=== PATIENT | female | born 1950 ===

== ENCOUNTER 2019-03-23 13:12 | Outpatient (CLI) | payer OTHER | END 2019-03-23 13:15 | disposition home or self-care (01) | LOC: EKG 13:12 | DX: I10 Essential (primary) hypertension (principal) ==

== ENCOUNTER 2020-06-12 14:21 | Outpatient (CLI) | payer OTHER | END 2020-06-12 14:26 | disposition home or self-care (01) | LOC: RAD 14:21 | PROVIDERS: ATTEND Ophthalmology | DX: I10 Essential (primary) hypertension (principal); I15.8 Other secondary hypertension ==

== ENCOUNTER 2022-06-20 11:43 | Outpatient (CLI) | payer OTHER | END 2022-06-20 12:10 | disposition home or self-care (01) | LOC: RAD 11:43 | PROVIDERS: ATTEND Orthopaedic Surgery | DX: R07.9 Chest pain, unspecified (principal) ==

== ENCOUNTER 2022-06-20 12:15 | Outpatient (CLI) | payer OTHER | END 2022-06-20 12:16 | disposition home or self-care (01) | LOC: LAB 12:15 | PROVIDERS: ATTEND Orthopaedic Surgery | DX: Z20.828 Contact with and (suspected) exposure to other viral communicable diseases (principal) ==

== ENCOUNTER 2022-06-23 10:43 | Outpatient (CLI) | payer OTHER | END 2022-06-23 10:55 | disposition home or self-care (01) | LOC: RAD 10:43 | PROVIDERS: ATTEND Orthopaedic Surgery | DX: M25.561 Pain in right knee (principal) ==

== ENCOUNTER 2023-03-11 08:15 | Inpatient (IN) | payer OTHER ==
[~2023-03-11] VITALS: Ht 152.4 cm; Wt 90.7 kg
[2023-03-11 11:11] LABS: HEMATOCRIT 40.5 % (36.0-45.00); HEMOGLOBIN 13.8 g/dL (12.0-15.00); MEAN CELL VOLUME 87.5 fL (80.00-100.00); MEAN CORPUSCULAR HEMOGLOBIN 29.8 pg (27.00-32.0); PLATELET COUNT 293 K/uL (150-450); RED BLOOD COUNT 4.62 M/uL (4.00-6.00); RED CELL DISTRIBUTION WIDTH 14.7 % (11.5-14.5); URINE APPEARANCE Clear; URINE BILIRRUBIN Negative (NEGATIVE); URINE BLOOD Negative; URINE COLOR Yellow; URINE GLUCOSE Negative (NEGATIVE); URINE LEUKOCYTE Negative; URINE NITRATE Negative; URINE PROTEIN Negative (NEGATIVE); URINE UROBILINOGEN 0.2 E.U./dl
[2023-03-11 11:15] LABS: URINE BACTERIA 26.4 uL (0.0-1933); URINE EPITHELIAL CELLS 7.1 uL (0.0-38.8); URINE RBC 7.4 uL (0.0-20.8); URINE WBC 8.1 uL (0.0-23.2)
[2023-03-11 11:35] LABS: INR 0.97; PARTIAL THROMBOPLASTIN TIME 28.4 SECONDS (22.0-34.0); PROTHROMBIN TIME 10.2 SECONDS (9.0-11.5)
[2023-03-11 11:53] LABS: ALBUMIN 4.1 gm/dL (3.4-5.0); BILIRUBIN TOTAL 0.45 mg/dL (0.3-1.2); CALCIUM 9.4 mg/dL (8.5-10.1); CREATININE SERUM 0.88 mg/dL (0.55-1.02); GFR 63.16; GLOBULINA 3.8 G/DL (2.4-3.5); POTASSIUM 4.15 mEq/L (3.5-5.1); TOTAL PROTEIN 7.9 gm/dL (6.4-8.2)
[2023-03-11] MEDS ORDERED: LOSARTAN-HCTZ1 EAC2 PO (12:47)
[2023-03-11] MEDS ORDERED: ATORVASTATIN CA20 MG PO (12:48)
[2023-03-11] MEDS ORDERED: AMLODIP PO (12:48)
[2023-03-17] MEDS ORDERED: AMLODIPINE BESYL5 MG (07:35)
[2023-03-18 01:05] LABS: HEMATOCRIT 34.8 % (36.0-45.00); MEAN CELL VOLUME 89.4 fL (80.00-100.00); MEAN CORPUSCULAR HEMOGLOBIN 29.5 pg (27.00-32.0); PLATELET COUNT 238 K/uL (150-450); RED BLOOD COUNT 3.89 M/uL (4.00-6.00); RED CELL DISTRIBUTION WIDTH 14.7 % (11.5-14.5)
[2023-03-18 01:14] LABS: HEMOGLOBIN 11.5 g/dL (12.0-15.00)
[2023-03-19 02:00] LABS: HEMATOCRIT 33.7 % (36.0-45.00); HEMOGLOBIN 11.4 g/dL (12.0-15.00); MEAN CELL VOLUME 87.6 fL (80.00-100.00); MEAN CORPUSCULAR HEMOGLOBIN 29.6 pg (27.00-32.0); MEAN CORPUSCULAR HGB CONC 33.8 g/dl (32.0-36.0); PLATELET COUNT 228 K/uL (150-450); RED BLOOD COUNT 3.85 M/uL (4.00-6.00); RED CELL DISTRIBUTION WIDTH 14.9 % (11.5-14.5)
[2023-03-19] MEDS ORDERED: OXYC1TAB9 PO (13:27)
[2023-03-19] MEDS ORDERED: GABAPENTIN100 MG PO (13:27)
[2023-03-19] MEDS ORDERED: XARELTO10 MG PO (13:27)
[2023-03-19] MEDS ORDERED: NORFLEX100MG PO (13:27)
== END 2023-03-19 18:00 | DRG 470 ==
LOC: O/R 03-17 05:35 → OB/GYN 03-17 05:35 → SURG 03-17 08:15 → OB/GYN 03-17 11:19 → SURG 03-17 16:00 → OB/GYN 03-19 18:00
PROVIDERS: ADMIT Orthopaedic Surgery; ATTEND Orthopaedic Surgery
PROC: 0SRD0JZ Replacement of Left Knee Joint with Synthetic Substitute, Open Approach (ICD-10-PCS; principal; 2023-03-17 16:00)
DX: M17.12 Unilateral primary osteoarthritis, left knee (principal); D62 Acute posthemorrhagic anemia; M85.662 Other cyst of bone, left lower leg; M65.862 Other synovitis and tenosynovitis, left lower leg; R26.89 Other abnormalities of gait and mobility; I10 Essential (primary) hypertension